=== PATIENT | male | born 1995 | race Caucasian/White ===

== ENCOUNTER 2020-11-07 07:54 | Emergency (ER) | payer SELFPAY ==
[~2020-11-07] VITALS: Ht 167.6 cm; Wt 68.0 kg
--- NOTE | 2020-11-07 08:09 | NUR ---
THE PATIENT IS BIB MOM C/O BIZARRE BEHAVIOR PER MOM SHE THINKS HE'S ON DRUGS AND JUST WANTS TO GET CHECKED. THE PATIENT IS ALERT AND ORIENTED X4. PATIENT IS IN ROOM AIR AND DENIES SOB. RESPIRATION REGULAR AND UNLABORED. WILL CONTINUE TO MONITOR.
--- NOTE | 2020-11-07 08:14 | NUR ---
URINE SPECIMEN IS COLLECTED AND SENT TO THE LAB.
--- NOTE | 2020-11-07 08:39 | NUR ---
THE PATIENT CALM AND COOPERATIVE AT THIS TIME.
[2020-11-07 09:09] VITALS: BP 117/76
--- NOTE | 2020-11-07 09:09 | NUR ---
Patient discharged to home in stable condition. Written and verbal after care instructions given. Patient verbalizes understanding of instruction. The patient left ER in stable condition accompanied by her mother.
== END 2020-11-07 09:09 | disposition home or self-care (01) ==
LOC: ER 07:58
DX: F12.90 Cannabis use, unspecified, uncomplicated (principal)